=== PATIENT | male | born 1980 | race Caucasian/White ===

== ENCOUNTER 2017-12-06 15:10 | Emergency (ER) | payer OTHER ==
[~2017-12-06] VITALS: Ht 188 cm; Wt 99.8 kg
[~2017-12-06 15:10] MED LIST: IBUPROFEN 800800 M1 PO; KEFLEX500 MG PO; ULTRAM50 MG PO; VENTOLIN HFA 1818 GM
[2017-12-06] MEDS ORDERED: ZITHROMAX500 MG PO (15:42)
[2017-12-06] MEDS ORDERED: MEDROLDOSEPACK PO (15:42)
[2017-12-06 15:57] VITALS: BP 126/84
== END 2017-12-06 15:58 | disposition home or self-care (01) ==
LOC: M.ERS 15:10
DX: J02.9 Acute pharyngitis, unspecified (principal); J45.909 Unspecified asthma, uncomplicated; J44.9 Chronic obstructive pulmonary disease, unspecified; Z88.1 Allergy status to other antibiotic agents; Z91.02 Food additives allergy status